=== PATIENT | male | born 1950 | race Caucasian/White ===

== ENCOUNTER 2023-02-26 08:26 | Outpatient (OUT) | payer MEDICARE, SELFPAY ==
--- NOTE | 2023-02-26 08:34 | CT_ITS ---
[address] [address] Patient Name: SHAD ABREU MRN: [id number] date: 1950 Sex: M Assigned Patient Location: CT Current Patient Location: CT Accession/Order Number: [id number] Exam Date: 02/26/2023 08:44 Report Date: 02/26/2023 10:51 At the request of: MAXIM TRINH Procedure: CT lung screening low-dose EXAMINATION: CT lung screening low-dose HISTORY: Tobacco Dependence F17.200 COMPARISON: No relevant comparison available. TECHNIQUE: Axial, Coronal, and Sagittal images were created without the administration of IV contrast material. Dose reduction techniques were achieved by using automated exposure control and/or adjustment of mA and/or kV according to patient size and/or use of iterative reconstruction technique. FINDINGS: LUNGS: Innumerable very faint 4 mm groundglass opacities scattered throughout the lungs, greatest within the right lung base; suspect infectious etiology versus atelectasis. A few well-defined 3 mm nodules bilaterally; not overtly suspicious. Mild emphysematous changes. PLEURA: No mass, effusion, or pneumothorax. VASCULATURE: No abnormality. SHERRY: Mild adenopathy. MEDIASTINUM: Mild adenopathy. CARDIAC: No enlargement, pericardial thickening, or significant calcification. AORTA: No aneurysm or dissection. CHEST WALL: No mass or axillary adenopathy BONES: No bone lesion or fracture. LIMITED ABDOMEN: No suspicious findings. Limited images of the upper abdomen. OTHER: Right jugular central venous catheter with tip in superior vena cava. CT/CT lung screening low-dose IMPRESSION: 1. Lung-RADS Category 3- Probably benign. Probably benign finding(s)- short term follow up suggested; includes nodules with a low likelihood of becoming a clinically active cancer. Six month LDCT. Electronically authenticated by: CECY MONTES DE OCA Date: 02/26/2023 10:51
== END 2023-02-26 08:27 | disposition home or self-care (01) ==
LOC: CT 08:29
PROVIDERS: PCP Internal Medicine; Visit Provider Internal Medicine
DX: F17.210 Nicotine dependence, cigarettes, uncomplicated (principal)
CPT/HCPCS: 71271

== ENCOUNTER 2023-09-08 09:17 | Outpatient (OUT) | payer MEDICARE, SELFPAY ==
--- NOTE | 2023-09-08 09:24 | CT_ITS ---
The [address] [address] Patient Name: SHAD ABREU MRN: [id number] date: 1950 Sex: M Assigned Patient Location: CT Current Patient Location: CT Accession/Order Number: [id number] Exam Date: 09/08/2023 09:30 Report Date: 09/08/2023 10:20 At the request of: MAXIM TRINH Procedure: CT chest wo con EXAM: CT chest wo con HISTORY: lung nodule seen on imaging study R91.1 COMPARISON: 02/26/2023 05/26/2021 ; 04/21/2017 TECHNIQUE: Axial CT images were obtained of the chest without intravenous contrast. Multiplanar reconstructions were performed. CHEST FINDINGS: Lungs/Pleura: The lungs are clear. There are a few scattered punctate pulmonary nodules which appear stable from the previous exam. For example, in the right middle lobe on image 71 and nodule measures 3.4 mm. A right upper lobe nodule on image 47 measures 4.7 mm. There are a few centrilobular groundglass nodules present in the right upper and right middle lobes, which appears similar to the previous study. Bibasilar atelectasis is present. No pleural effusion or pneumothorax. Mild paraseptal emphysematous disease is present. Cardiovascular: The heart is normal in size. Mild coronary artery calcifications are present. There is a right chest port with catheter tip in the superior vena cava. The aorta and pulmonary arteries are unremarkable. Pericardium: No effusion. Mediastinum: Unremarkable. Lymph Nodes: No lymph node enlargement identified on this nonenhanced CT. Bones: No acute osseous abnormality. Soft tissues: Unremarkable. Upper Abdomen: Multiple small hypodense lesions are again noted in the visualized liver, which appears similar to previous exams. CT/CT chest wo con IMPRESSION: 1. No acute abnormality of the chest. 2. Stable pulmonary nodules. Annual surveillance is recommended. 3. Mild emphysematous disease. 4. Satisfactory position of a right chest port. Electronically authenticated by: TARIQ PETERSON Date: 09/08/2023 10:20
== END 2023-09-08 09:18 | disposition home or self-care (01) ==
LOC: CT 09:18
PROVIDERS: PCP Internal Medicine; Visit Provider Internal Medicine
DX: R91.1 Solitary pulmonary nodule (principal); F17.200 Nicotine dependence, unspecified, uncomplicated
CPT/HCPCS: 71250

== ENCOUNTER 2024-04-28 09:15 | Outpatient (OUT) | payer MEDICARE, SELFPAY ==
--- NOTE | 2024-04-28 09:20 | US_ITS ---
[address] [address] Patient Name: SHAD ABREU MRN: [id number] date: 1950 Sex: M Assigned Patient Location: US Current Patient Location: Accession/Order Number: [id number] Exam Date: 04/28/2024 09:28 Report Date: 04/29/2024 06:07 At the request of: ROZ LUNA Procedure: US renal BI EXAMINATION: US renal BI HISTORY: Ureteral Stone With Hydronephrosis N13.2 Kidney Stone COMPARISON: CT abdomen pelvis 07/12/2017 TECHNIQUE: Ultrasound examination was performed of the kidneys and urinary bladder. FINDINGS: RIGHT KIDNEY: Contains a nonobstructing 12 mm stone. No significant cortical thinning. Normal parenchymal echogenicity. Color Doppler demonstrates blood flow within the kidney. Kidney: 10.2 x 4.9 x 5.3 cm. LEFT KIDNEY: Contains a few nonobstructing stones, largest is 8 mm. No significant cortical thinning. Normal parenchymal echogenicity. Color Doppler demonstrates blood flow within the kidney. Kidney: 10.4 x 4.1 x 3.8 cm BLADDER: Prior cystectomy. OTHER: Stones within gallbladder. US/US renal BI IMPRESSION: 1. Bilateral nonobstructing nephrolithiasis. No convincing hydronephrosis. 2. Prior cystectomy. Electronically authenticated by: CECY MONTES DE OCA Date: 04/29/2024 06:07
--- NOTE | 2024-04-28 09:20 | US_ITS ---
The [address] [address] Patient Name: SHAD ABREU MRN: [id number] date: 1950 Sex: M Assigned Patient Location: US Current Patient Location: US Accession/Order Number: [id number] Exam Date: 04/28/2024 09:28 Report Date: 04/28/2024 10:58 At the request of: ROZ LUNA Procedure: US scrotum EXAMINATION: US scrotum HISTORY: Epididymochitis N45.3 ; right scrotal pain COMPARISON: No relevant comparison available. TECHNIQUE: High-resolution sonographic imaging of the scrotum and contents was performed. FINDINGS: RIGHT: TESTICLE: Homogeneous echotexture. No visible mass. Increased blood flow on color Doppler. Spectral Doppler demonstrates normal arterial waveform and flow velocity, 4/2 cm/s (PSV/EDV), and normal venous wave flow averaging 2 cm/s. EPIDIDYMIS: Heterogeneous and hypervascular. Small epiploic appendage; likely incidental. OTHER: Large hydrocele 6.9 x 3.6 x 4.7 cm. LEFT: TESTICLE: Large heterogeneous testicle with innumerable tiny cystic areas scattered within the testicle. No internal blood flow on color Doppler or duplex Doppler. Adjacent 1.1 x 0.4 x 1.0 cm calcification. EPIDIDYMIS: Not seen. OTHER: No free fluid. US/US scrotum IMPRESSION: 1. Right epididymitis and orchitis with large hydrocele. 2. Large heterogeneous left testicle with innumerable tiny cysts scattered within the testicle and no internal blood flow. The lack of internal blood flow weighs against neoplasm, but this is not completely excluded. I suspect remote infarction of the testicle. Electronically authenticated by: CECY MONTES DE OCA Date: 04/28/2024 10:58
--- NOTE | 2024-04-28 09:20 | XR_ITS ---
The [address] [address] Patient Name: SHAD ABREU MRN: [id number] date: 1950 Sex: M Assigned Patient Location: US Current Patient Location: US Accession/Order Number: [id number] Exam Date: 04/28/2024 10:38 Report Date: 04/28/2024 11:01 At the request of: ROZ LUNA Procedure: XR abdomen 1V EXAMINATION: XR abdomen 1V HISTORY: Ureteral Stone With Hydronephrosis COMPARISON: No relevant comparison available. FINDINGS: KIDNEY/URETER - RIGHT: Percutaneous nephrostomy tube. 8 mm stone versus radiopaque contrast within inferior pole of kidney. KIDNEY/URETER - LEFT: Percutaneous nephrostomy tube no visible stones. PELVIS: No visible ureteral stones. BOWEL: No abnormal dilation or deviation. BONES: No acute abnormality. OTHER: Negative. No abnormal gaseous collections. XR/XR abdomen 1V IMPRESSION: 1. Bilateral percutaneous nephrostomy tubes. 2. Suspect 8 mm stone within inferior pole of right kidney. Electronically authenticated by: CECY MONTES DE OCA Date: 04/28/2024 11:01
== END 2024-04-28 09:16 | disposition home or self-care (01) ==
LOC: US 09:15
PROVIDERS: PCP Internal Medicine; Visit Provider Urology
DX: N13.2 Hydronephrosis with renal and ureteral calculous obstruction (principal); N45.3 Epididymo-orchitis
CPT/HCPCS: 74018; 76775; 76870

== ENCOUNTER 2024-07-21 09:58 | Outpatient (OUT) | payer MEDICARE, SELFPAY ==
--- NOTE | 2024-07-21 10:07 | ECG_ITS ---
The [facility] Test Date: 2024-07-21 Pat Name: SHAD ABREU Department: Room: - Gender: Male Felt Finisher: : 1950 Requested By: ROZ LUNA Order Number: [id number] Reading MD: AGUILAR PINEDO Measurements Intervals [place] Rate: 65 P: 61 MI: 163 QRS: -33 QRSD: 97 T: 45 QT: 410 QTc: 428 Interpretive Statements SINUS RHYTHM MARKED LEFT AXIS DEVIATION [QRS AXIS < -30] SEPTAL MYOCARDIAL INFARCTION [40+ ms Q WAVE IN V1/V2], OF INDETERMINATE AGE Compared to ECG 07/12/2017 01:47:46 Left-axis deviation now present Myocardial infarct finding now present Electronically Signed On 07-21-2024 17:06:50 EST by AGUILAR PINEDO
[2024-07-21 11:00] LABS: Basophils Percent Auto 0.2 % (0.2-2.0); Eosinophils Absolute Auto 0.2 10^3/uL (0.0-0.7); Eosinophils Percent Auto 3.3 % (0.9-7.0); Hematocrit 37.4 % (42.0-54.0); Lymphocytes Absolute Auto 1.2 10^3/uL (1.2-3.8); Lymphocytes Percent Auto 23.7 % (20.5-60.0); Mean Corpuscular HGB Conc 34.8 g/dL (29.9-35.2); Mean Corpuscular Hemoglobin 35.1 pg (25.9-34.0); Mean Corpuscular Volume 101.1 fL (80.0-94.0); Mean Platelet Volume 9.3 fL (9.5-13.5); Monocytes Absolute Auto 0.3 10^3/uL (0.3-0.8); Neutrophils Absolute Auto 3.2 10^3/uL (1.4-6.5); Neutrophils Percent Auto 65.8 % (43.0-75.0); Platelet Count 163 10^3/uL (150-450); Red Cell Distribution Width 13.4 % (11.0-15.0); White Blood Count 4.9 10^3/uL (4.0-11.0)
[2024-07-21 11:12] LABS: Anion Gap 9.7; BUN Creatinine Ratio 16.2; Calcium 9.1 mg/dL (8.5-10.1); Carbon Dioxide 27.4 mmol/L (21.0-32.0); Chloride 105 mmol/L (98-107); Estimated GFR (African America >60 (>=60 mL/min/1.73m^2); Estimated GFR (Non-African Ame >60 (>=60 mL/min/1.73m^2); Glucose 93 mg/dL (74-106); Potassium 4.1 mmol/L (3.5-5.1); Sodium 138 mmol/L (136-145)
[2024-07-21 11:27] LABS: INR 1.09; Partial Thromboplastin Time 30.5 sec (22.3-36.2); Prothrombin Time 11.5 sec (9.0-11.6)
== END 2024-07-21 09:59 | disposition home or self-care (01) ==
LOC: PST 09:59
PROVIDERS: PCP Internal Medicine; Visit Provider Urology
DX: Z01.810 Encounter for preprocedural cardiovascular examination (principal); Z01.812 Encounter for preprocedural laboratory examination; N43.3 Hydrocele, unspecified; N45.3 Epididymo-orchitis
CPT/HCPCS: 80048; 85025; 85610; 85730; 93005

== ENCOUNTER 2024-08-15 08:04 | Outpatient (OUT) | payer MEDICARE, SELFPAY ==
--- NOTE | 2024-08-15 07:15 | NM_ITS ---
Patient Name: SHAD ABREU MR#: [id number] : 1950 Exam Date: 08/15/2024 Ordering Doctor: DR MAXIM TRINH M.D. RADIOLOGY REPORT PROCEDURE: NM JOSELYN PERF SPECT REST STR COMPARISON: None. INDICATIONS: ABNORMAL EKG, PRE PROCEDURE CARDIOVASCULAR EXAM TECHNIQUE: Exam Description: Stress/Rest one day protocol gated SPECT Rest Imagin.0 mCi Tc-99m Cardiolite IV on 08/15/2024 Stress Imaging 30.1 mCi Tc-99m Cardiolite IV on 08/15/2024 Exercise Protocol: 0.4 mg Lexiscan given IV Heart Rate (bpm): Rest: 68 Max: 120 PMHR: 82 Blood Pressure: Rest: 130/68 Max: 130/68 Symptoms: Rest and peak stress ECG findings were abnormal and the exercise portion of the study was abnormal per attending physician Dr. Roman due to EKG changes. For more details please see separate cardiac stress test report. FINDINGS: QUALITY OF STUDY: Good. PERFUSION DEFECT: LOCATION: Mid-inferior. Apical inferior. [place]. SIZE: Medium (3-4 segments). SEVERITY: Mild. TYPE: Persistent. WALL MOTION: Normal. LV SIZE: Normal. 95 mL. TID / TCD: None; 0.9 LVEF: Normal. Calculated EF 70%. SUMMARY: Myocardial perfusion imaging study has ABNORMAL findings. CONCLUSION: 1. Small area of mildly decreased uptake in the inferior wall on stress images, this area is stable on rest images with no redistribution to suggest reversible ischemia 2. Abnormal exercise test secondary to EKG changes Dictated by: Bill Lyons MD on 08/16/2024 at 07:26 Approved by: Bill Lyons MD on 08/16/2024 at 07:29
[2024-08-15] MEDS: REGADENOSON 0.4 MG/5 ML SYRINGE IV (09:04)
--- NOTE | 2024-08-15 11:48 | P.STRESS_ITS ---
Stress Test Stress Test Allergies Allergy/AdvReac Type Severity Reaction Status Date / Time adhesive Allergy Rash Verified 07/21/24 10:28 cephalexin (From Keflex) Allergy Unknown Verified 07/21/24 10:28 Requesting physician: AMXIM TRINH Procedure: Lexiscan Cardiolite stress test General Information: Reason for Stress Test: Pre-operative evaluation Cardiac History and Risk Factors: Current smoker. Unspecified cardiovascular disease in family. Resting 12 - Lead Electrocardiogram: Normal sinus rhythm with rate 68. Normal axis. No abnormal T-waves or ST- segments. Stress Test: Protocol: Lexiscan protocol was initiated with injection of 0.4mg Lexiscan IV push followed by Cardiolite. Blood pressure: Initial & maximum: 130/68 Rate & rhythm: Patient remained in sinus rhythm during the exercise and recovery portions of the study.? The maximum heart rate was 120, which was 82% of the maximum predicted heart rate. ST-segments & T-waves: There were no T-wave changes and no ST-segment changes when compared to the baseline EKG. Patient response/symptoms: There were no symptoms reported. Interpretation: This is a positive Lexiscan stress test based on the ST-segment changes in III (downsloping) and II & aVF (~0.5mm depression). Patient was asymptomatic. Cardiolite imaging interpretation will be reported separately. Clinical correlation required.?
== END 2024-08-15 08:05 | disposition home or self-care (01) ==
LOC: NM 08:04
PROVIDERS: PCP Internal Medicine; Visit Provider Internal Medicine
DX: Z01.818 Encounter for other preprocedural examination (principal); N45.3 Epididymo-orchitis; R94.31 Abnormal electrocardiogram [ECG] [EKG]
CPT/HCPCS: 78452; 93017; A9500; J2785

== ENCOUNTER 2024-08-24 10:42 | Day surgery (SDC) | payer MEDICARE, SELFPAY ==
[2024-07-21 10:47] VITALS: BP 122/73; PULSE 70; TEMP 36.5; O2SAT 98; BMI 24.8
[2024-08-24] VITALS (15 sets, daily range): BP systolic 122–147; BP diastolic 59–91; PULSE 74–98; TEMP 36.3–36.6; O2SAT 92–97; BMI 25.1
[2024-08-24] MEDS: LACTATED RINGER'S SOLUTION 1,000 ML 50 ML IV ×2 (11:41→15:28)
[2024-08-24] MEDS: CIPROFLOXACIN 400 MG/200 ML D5W PREMIX 200 MG IV (13:28)
--- NOTE | 2024-08-24 15:22 | P.URON_ITS ---
Urology Surgery Operative Note Operative Note Procedure Date: 08/24/24 Time Out Performed: yes Pre-op Diagnosis: Chronic right epididymal orchitis with hydrocele refractory to oral and IV antibiotics Post-op Diagnosis: same as pre-op Procedures performed: 1. Right simple orchiectomy Anesthesia: BAKARI Primary Surgeon: Lei De La Garza Complications: None Estimated blood loss (mL): 5 Findings: Tense right hydrocele with induration of epididymis and testicle along with induration of distal cord Specimens: Right testicle epididymis and cord to external ring Indications for Procedures: This gentleman has metastatic urothelial carcinoma for which he underwent palliative cystectomy and ileal loop formation. He is also had radiation for prostate cancer. He has been dealing with right epididymal orchitis that has been getting more and more bothersome despite multiple courses of oral antibiotics and IV antibiotics. He is experiencing daily pain and is strongly desirous for right orchiectomy. He has signed an informed consent for right simple orchiectomy. Detailed description of Procedure: The patient was brought to the operating room and placed on the operating room table in the supine position. SCDs were placed on his lower extremities and turned on and functioning during the entire case. Timeout was done by all parties in the room. We all agreed upon the patient's identification and the planned procedures for this patient. General endotracheal anesthesia was then administered. The genitalia and lower abdomen were sterilely prepped and draped in the usual fashion. I started by making a right transverse upper hemiscrotal incision with a 15 blade scalpel. Sharp dissection was carried down through the layers until I arrived at a very tense blue appearing fluid-filled hydrocele. I sharply and bluntly dissected out the right hemiscrotal contents and then proximally up the cord. The spermatic cord was very indurated also. I dissected up very close to the external ring where I arrived at what seemed like normal cord integrity. I placed 2 Rekha clamps over the cord proximally near the external ring. I then used a JUDY stapler and fired this across the cord between the Rekha clamps thus transecting the cord and had an excellent triple staple line. The testicle epididymis and right spermatic cord were then sent for permanent sections. The staple line was excellent. I did use the Bovie to coagulate the ends of the staple line. The area was irrigated. Any tiny bleeders were coagulated with the needle tip Bovie cautery. Once we verified that the cord stump was dry and there was no bleeding anywhere we then began our closure. We closed the dartos layer with 3-0 Vicryl in a running fashion. The scrotal skin was closed with 4- 0 Vicryl in a running fashion. Bacitracin ointment was applied. Fluffs were placed and a scrotal support was then applied. The anesthetic was then reversed. He was then transferred to a [facility] and wheeled to PACU in stable condition.
--- NOTE | 2024-08-24 15:43 | PC.NURSE ---
1529- Patient has nephrostomy tubes x2. Both are draining clear yellow urine. Ileal conduit intact and draining clear yellow urine.
[2024-08-24] MEDS: HYDROMORPHONE HCL 0.5 MG/0.5 ML SYRINGE IV (15:48)
[2024-08-24] MEDS: HYDROCODONE/ACET 10-325 MG TABLET 1 TAB PO (16:10)
--- NOTE | 2024-08-24 16:35 | PC.NURSE ---
Both nephrostomy tubes and the ileal conduit emptied for a total of 400CC of yellow urine.
== END 2024-08-24 17:00 | disposition home or self-care (01) ==
PROVIDERS: PCP Internal Medicine; Visit Provider Urology
PROC: (CPT 54520; principal; 2024-08-24 13:25)
DX: N45.3 Epididymo-orchitis (principal); N43.3 Hydrocele, unspecified; Z85.46 Personal history of malignant neoplasm of prostate; Z85.59 Personal history of malignant neoplasm of other urinary tract organ; Z90.79 Acquired absence of other genital organ(s); F17.210 Nicotine dependence, cigarettes, uncomplicated; J44.9 Chronic obstructive pulmonary disease, unspecified; G47.33 Obstructive sleep apnea (adult) (pediatric); E78.5 Hyperlipidemia, unspecified; E03.9 Hypothyroidism, unspecified; Z92.21 Personal history of antineoplastic chemotherapy; Z86.718 Personal history of other venous thrombosis and embolism
CPT/HCPCS: 54520; 36415; J0744; J1100; J1171; J2405; J2704; J3010